=== PATIENT | male | born 1990 | race Two or more races ===

== ENCOUNTER 2019-02-17 20:55 | Emergency (ER) | payer SELFPAY ==
[~2019-02-17] VITALS: Ht 167.6 cm; Wt 68.0 kg
--- NOTE | 2019-02-17 21:02 | NUR ---
ED Nurse Note: Pt was sleeping in friend's house and found out he has bed bug on his body. Pt brought in with GARETHD. Pt is AO x 4times, VSS, on room air no distress. RAMSES seen Pt at bedside.
[2019-02-17 21:23] VITALS: BP 123/88
--- NOTE | 2019-02-17 21:35 | Emergency Room Report ---
History of Present Illness General Chief Complaint: Medical Clearance Source: Patient Present Illness HPI Patient is a 28-year-old male who presented after increased generalized itchiness. Patient reports having itchiness to multiple areas on his body. Patient reports having been bitten by bedbugs. He reports having itching to his face as well as to his extremities. He denies any other prior past medical history. Patient is in [employer]'s custody currently.Patient denies any other complaints. Allergies: Coded Allergies: No Known Allergies (Unverified , 02/17/19) Patient History Past Medical History: see triage record Reviewed Nursing Documentation: PMH: Agreed; PSxH: Agreed Nursing Documentation-PMH Past Medical History: No Stated History Review of Systems All Other Systems: negative except mentioned in HPI Physical Exam Vital Signs Date Time Temp Pulse Resp B/P (MAP) Pulse Ox O2 Delivery O2 Flow Rate FiO2 02/17/19 21:03 98.1 72 19 98 Room Air 02/17/19 21:23 123/88 General Appearance: well appearing, no apparent distress, alert, GCS 15 Head: normocephalic, atraumatic ENT: hearing grossly normal, normal voice Neck: full range of motion, supple Respiratory: lungs clear, no respiratory distress, speaking full sentences Cardiovascular #1: normal inspection, normal peripheral pulses Gastrointestinal: normal inspection, soft Musculoskeletal: no calf tenderness Neurologic: normal inspection, alert, oriented x3, responsive, normal gait Psychiatric: mood/affect normal Skin: no rash, other - multiple excoriated nonerythematous papules. Medical Decision Making Diagnostic Impression: Primary Impression: Insect bite ER Course . Patient presented for skin rash. Differential diagnosis include was not limited to scabies, insect bite, among others. Patient has a benign exam and does not appear to require any further imaging or laboratory testing at this time. Patient was given oral Benadryl. Patient is stable for discharge. Patient will be medically cleared and discharged and discharged custody. Patient will require a recheck in 2 to 3 days. Last Vital Signs Date Time Temp Pulse Resp B/P (MAP) Pulse Ox O2 Delivery O2 Flow Rate FiO2 02/17/19 21:23 98.1 79 19 123/88 98 Room Air Status: improved Disposition: HOME, SELF-CARE Condition: Stable Scripts Diphenhydramine Hcl* (BENADRYL*) 25 Mg Capsule 25 MG ORAL Q6H PRN for Itching, #30 CAP Prov: Gerald Medina MD 02/17/19 Gerald Medina MD February 17, 2019 21:35
[2019-02-17] MEDS ORDERED: BENADRYL25 MG ORAL (22:01)
[2019-02-17 22:12] VITALS: BP 130/78
--- NOTE | 2019-02-17 22:13 | NUR ---
ED Nurse Note: Pt cleared DC by RAMSES. LASD signed DC papers for Pt, and understood instruction well.Pt is AO x 4times, VSS, on room air no distress. Pt walked out unit with GARETHD with steady gait.
[2019-02-17 22:15] VITALS: BP 130/78
== END 2019-02-17 22:19 | disposition home or self-care (01) ==
LOC: EMR 21:30
DX: T14.8XXA Other injury of unspecified body region, initial encounter (principal); W57.XXXA Bitten or stung by nonvenomous insect and other nonvenomous arthropods, initial encounter; Y92.9 Unspecified place or not applicable
CPT/HCPCS: 99282